=== PATIENT | female | born 2000 | race Hispanic/Latino ===

== ENCOUNTER 2021-05-30 11:38 | Emergency (ER) | payer OTHER, SELFPAY ==
[2021-05-30 11:55] VITALS: BP 135/67; PULSE 88; RESP 16; TEMP 37; O2SAT 100; BMI 24.9
--- NOTE | 2021-05-30 12:02 | DI.US.S_ITS ---
PROCEDURE: US OB <= 14 WEEKS FETUS INDICATIONS: BLEEDING/PAIN OUTSIDE/PRIOR DATING DATA: Last menstrual period (LMP): 04/10/2021. LMP-based estimated date of delivery (RACHAEL): 01/15/2022. First dating scan (date and location): 05/30/2021. Estimated date of delivery (RACHAEL) from first dating scan: 01/18/2022. The calculations are made using the ultrasound derived RACHAEL of 01/18/2022. TECHNIQUE: Real-time scanning was performed of the fetus and maternal pelvic organs, with image documentation. Endovaginal scanning was also performed to better visualize the fetus and maternal ovaries. COMPARISON: None. FINDINGS: There is a gestational sac at the uterine fundus containing a fetus which measures 8 mm, corresponding to gestational age of 6 weeks 5 days. heart rate 145 beats per minute. Yolk sac noted. No perigestational hemorrhage demonstrated. Maternal organs: Both ovaries are normal; with 2.3 cm right adnexal corpus luteum cyst noted. No uterine mass. IMPRESSION: Single live intrauterine gestation, estimated ultrasound age 6 weeks 5 days. Dictated by: Dwayne Calderon M.D. on 05/30/2021 at 12:39 Approved by: Dwayne Calderon M.D. on 05/30/2021 at 12:42
[2021-05-30 12:36] LABS: RBC Urine 1-5/HPF (0-5/HPF); WBC Urine 5-10/HPF (0-5/HPF)
[2021-05-30 12:37] LABS: Bacteria Urine Many (>30); Culture Indicated Urine Specimen Cultured
[2021-05-30 13:12] VITALS: BP 102/52; PULSE 80; O2SAT 99
[2021-05-30 13:47] LABS: HCG Quantitative /Beta subunit 60464 mIU/mL
--- NOTE | 2021-05-30 13:54 | ED_ITS ---
HPI - General Chief complaint: Urogenital-Female Stated complaint: Possible ectopic - [facility] by base Time Seen by Provider: 05/30/21 12:02 Source: patient Mode of arrival: Ambulatory Limitations: no limitations History of Present Illness HPI Narrative: 21-year-old female who is and approximately 6 weeks presents to the emergency department complaining of vaginal bleeding which started 1 week ago with menstrual cramping which started 2 weeks ago. Patient states that she was high risk during her last due to her baby's dextrocardia. She states that she has not seen her OBGYN yet but it is Derek Will. Patient endorses nausea consistent with her morning sickness, denies any vomiting, diarrhea, fever, or abdominal pain. Patient states that she was spotting for approximately 1, last night her vaginal bleeding became heavier and she went through more than 1 pad. 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 General: Cooperative, comfortable, in no acute distress, well developed and well groomed Head/Neck: Normal visual inspection and supple, atraumatic, or lymphadenopathy. Normal facial exam Eyes: Pupils equal round and reactive, EOMI, conjunctiva normal, no scleral icterus or injections Nose: External nose normal, nares patent, no rhinorrhea, without purulent drainage Mouth/Throat: uvula midline, moist mucus membranes Cardio: Regular rate and rhythm, no peripheral edema, warm extremities Respiratory: Normal respiratory effort, able to speak in complete sentences without audible wheezing, stridor, or rales. No retractions. 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: deferred exam for OB ultrasound, patient denies any abnormal vaginal discharge other than spotting MSK: Moves all extremities, neurovascularly intact Skin: Normal capillary refill, no rash Neuro: Normal speech and cognition, normal gait, A&O x3, tone normal, moves all extremities Psych: Mental status is grossly normal, speech is clear, congruent mood, normal affect Initial Vital Signs Initial Vital Signs: Vital Signs Temperature 98.6 F 05/30/21 11:55 Pulse Rate 88 05/30/21 11:55 Respiratory Rate 16 05/30/21 11:55 Blood Pressure 135/67 05/30/21 11:55 Pulse Oximetry 100 05/30/21 11:55 Course Orders Ordered: ED Orders 05/30/21 12:02 US OB <= 14 weeks fetus Stat 05/30/21 12:27 Urine Culture Stat Urine Microscopic Stat 05/30/21 12:40 HCG Quantitative /Beta subunit Stat Vital Signs Vital signs: Vital Signs - 8 hr 05/30/21 11:55 05/30/21 13:12 Temperature 98.6 F Pulse Rate 88 80 Respiratory Rate 16 Blood Pressure 135/67 102/52 L Pulse Oximetry 100 99 MDM - OB/Uterine Contractions Lab Data Labs: Lab Results 05/30/21 05/30/21 Range/Units 12:27 12:40 HCG, Quant 02322 mIU/mL Urine RBC 1-5/hpf (0-5/HPF) Urine WBC 5-10/hpf H (0-5/HPF) Urine Bacteria Many (>30) H (None) Ur Culture Indicated? Specimen cultured Imaging Data US - OB: Radiologist's Impression: [address] [address] Ultrasound Report Signed Patient: Marj Deal MR#: [id number] : 2000 Acct:[id number] Age/Sex: 21 / F Date of Service: 05/30/21 PROCEDURE:? US OB <= 14 WEEKS FETUS ? INDICATIONS:? BLEEDING/PAIN ? OUTSIDE/PRIOR DATING DATA:? Last menstrual period (LMP):? 04/10/2021.? LMP-based estimated date of delivery (RACHAEL):? 01/15/2022.? First dating scan (date and location):? 05/30/2021.? Estimated date of delivery (RACHAEL) from first dating scan:? 01/18/2022. The calculations are made using the ultrasound derived RACHAEL of 01/18/2022. ? TECHNIQUE:? Real-time scanning was performed of the fetus and maternal pelvic organs, with image documentation.? Endovaginal scanning was also performed to better visualize the fetus and maternal ovaries.? ? COMPARISON:? None. ? FINDINGS:? ? There is a gestational sac at the uterine fundus containing a fetus which measures 8 mm, corresponding to gestational age of 6 weeks 5 days.? heart rate 145 beats per minute.? Yolk sac noted.? No perigestational hemorrhage demonstrated. ? Maternal organs:? Both ovaries are normal; with 2.3 cm right adnexal corpus luteum cyst noted.? No uterine mass. ?? IMPRESSION:? Single live intrauterine gestation, estimated ultrasound age 6 weeks 5 days. ?? Dictated by: Dwayne Calderon M.D. on 05/30/2021 at 12:39 ? ? Approved by: Dwayne Calderon M.D. on 05/30/2021 at 12:42 ? MDM Narrative Medical decision making narrative: 21-year-old female who is 6 weeks 5 days gestation, LMP 04/10/2021 who presents to the emergency department for vaginal spotting which started 1 week ago and menstrual cramping which started 2 weeks ago. She was sent over from the [facility] to rule out ectopic . On exam patient denies any abdominal pain or exquisite tenderness with palpation, she is in no apparent distress, states that her spotting was light about a week ago and has progressed slightly to dark red blood last night and over 1 pad throughout the night. She endorses nausea without vomiting, afebrile, no abnormal vaginal discharge other than spotting. Patient has an with dextrocardia and states that she is high risk for . She denies history of ectopic . Ob ultrasound was completed today which shows a single live intrauterine gestation ultrasound age estimated at 6 weeks 5 days. heart rate was 145 beats per minute, yolk sac noted, without perigestational hemorrhage demonstrated. LMP based estimated date of delivery: 01/15/2022. Directed patient to follow-up soon with Derek Wlil MD who is her OBGYN. She was shared the results of her ultrasound and HCG quant level of 60,464. Patient is appropriate and amenable to discharge home. Vital signs are stable on repeat examination is unremarkable. Patient has been informed of results. Patient has been given strict return to ER precautions for any new or worsening symptoms. Patient understands to follow up closely with outpatient providers as instructed. Patient understands plan and agrees to discharge home. All questions and concerns answered at this time. Discharge Plan Departure Patient Disposition: Home Clinical Impression: Antepartum bleeding, first trimester Instructions: DI for Vaginal Bleeding During , Early Bleeding Activity Restrictions/Additional Instructions: *You have been diagnosed with a 6 week 5-day-old fetus, heart tones were 145, hCG level is 60,464. Please follow-up with Dr. Will in the next 2-3 days and have your hCG drawn again, and have them test your urine again for infection as well. Because your last baby was at high risk and your high-risk as well, I want you to be seen by OBGYN as soon as possible. Please stay hydrated with electrolyte containing drinks. I hope you feel better soon. *What to do: *Please continue to take your regular medications as directed. [ ] New medication prescriptions sent to your pharmacy: [ ] [ ] New medication written as a paper prescription [ x] No new medications given *Please follow up with your primary care provider in 2-3 days, call for an appointment. Let them know you were seen in the Emergency Department and that we ask that you be seen in follow up. We will electronically transmit a record of today's note if your PCP is in our system *If you do not have a primary care provider please contact the [facility] Resource line at [phone]. They will ask some questions about your medical history and help get you set up with a doctor in the community. *Return to Emergency Department if you should have any new, worsening or concerning symptoms, such as [fever greater than 101F, chills, worsening pain, persistent vomiting or other bothersome symptoms] Referrals: Derek Will MD [Physician] - As soon as possible
== END 2021-05-30 14:08 | disposition home or self-care (01) ==
PROVIDERS: Emergency Provider Nurse Practitioner Critical Care Medicine
DX: O20.9 Hemorrhage in early pregnancy, unspecified (principal); Z3A.01 Less than 8 weeks gestation of pregnancy
CPT/HCPCS: 36415; 76801; 76817; 81015; 84702; 87077; 87086; 87186; 99284

== ENCOUNTER 2021-06-18 08:32 | Emergency (ER) | payer OTHER, SELFPAY ==
[2021-06-18 08:49] VITALS: BP 142/86; PULSE 117; RESP 20; TEMP 36.4; O2SAT 100; BMI 24.0
--- NOTE | 2021-06-18 08:55 | ED.GENADULT ---
HPI - General Adult General Chief complaint: Urogenital-Female Stated complaint: Heavy bleeding- 10 weeks Time Seen by Provider: 06/18/21 08:42 History of Present Illness HPI narrative: The patient is , 9+ 6 weeks . She developed heavy bleeding while at work about 815 this morning. Her pants are soaked. There is no obvious, ongoing bleeding. She has no abdominal cramping, no pain. She has no urinary complaints. She has no fever, chills, or suggestion of acute illness. She is uncertain of her blood type. She denies chronic illness. Related Data Allergies Allergy/AdvReac Type Severity Reaction Status Date / Time No Known Drug Allergies Allergy Verified 05/30/21 11:59 Review of Systems Constitutional Constitutional: Denies body ache(s), Denies chills, Denies fever(s) and Denies headache(s) ENT Ears, Nose, Mouth, and Throat: Denies headache(s) and Denies sore throat Cardiovascular Cardiovascular: Denies dyspnea Respiratory Respiratory: Denies cough and Denies dyspnea Gastrointestinal Gastrointestinal: Denies abdominal pain, Denies nausea and Denies vomiting Genitourinary Genitourinary: Denies dysuria Comments: Heavy vaginal bleeding is noted HPI. Musculoskeletal Musculoskeletal: Denies back pain Neurologic Neurologic: Denies headache(s) Patient History Social History Smoking Status: Never smoker Smoking Status: Never smoker Substance Use Type: does not use Exam Initial Vital Signs Initial Vital Signs: Vital Signs Temperature 97.6 F 06/18/21 08:49 Pulse Rate 117 H 06/18/21 08:49 Respiratory Rate 20 06/18/21 08:49 Blood Pressure 142/86 H 06/18/21 08:49 Pulse Oximetry 100 06/18/21 08:49 Const General: cooperative, healthy appearing, comfortable and anxious [facility] Head: normocephalic and atraumatic Resp Auscultation: clear to auscultation bilaterally Cardio Rate: regular rate Rhythm: regular rhythm Heart Sounds: S1 normal, S2 normal and no murmurs GI Palpation: soft, No mass and No tender Auscultation: normal bowel sounds External Female Exam: normal external appearance Speculum Exam - Vagina: other (Dark blood in the vagina. Small amount of blood at the cervix. ) Speculum Exam - Cervix: closed Bimanual Exam- Vagina & Uterus: other (Uterus consistent with 10 week .) Bimanual Exam- Adnexa, other: normal adnexae Skin General: no rashes or lesions noted Neuro General: patient alert, patient awake and patient oriented x3 Extrem General: normal to inspection and full ROM Course Orders Ordered: ED Orders 06/18/21 08:56 ABO RH Type Stat Complete Blood Count AUTO DIFF Stat 06/18/21 09:00 Comprehensive Metabolic Panel Stat HCG Quantitative /Beta subunit Stat 06/18/21 11:04 US OB <= 14 weeks fetus Stat Vital Signs Vital signs: Vital Signs - 8 hr 06/18/21 08:49 Temperature 97.6 F Pulse Rate 117 H Respiratory Rate 20 Blood Pressure 142/86 H Pulse Oximetry 100 Medical Decision Making Lab Data Result diagrams: 06/18/21 08:56 06/18/21 09:00 Labs: Lab Results 06/18/21 06/18/21 06/18/21 Range/Units 08:56 08:56 09:00 WBC 9.5 (4.5-11.0) X10^3/uL RBC 4.47 (4.0-5.2) X10^6/uL Hgb 13.6 (12.0-16.0) g/dL Hct 40.7 (36-46) % MCV 91.1 (80-100) fL MCH 30.4 (26-34) PG MCHC 33.4 (30-36) % RDW 13.2 (11.6-14.8) % Plt Count 190 (150-400) X10^3/uL Neut % (Auto) 76.8 H (50-75) % Lymph % (Auto) 16.6 L (25-40) % Catron % (Auto) 5.4 (3-14) % Eos % (Auto) 0.6 L (2-4) % Baso % (Auto) 0.6 (0-2) % Neut # (Auto) 7300 H (7250-0875) /uL Lymph # (Auto) 1600 (2968-2017) /uL Catron # (Auto) 500 (0-900) /uL Eos # (Auto) 100 (0-450) /uL Baso # (Auto) 100 (0-100) /uL Sodium 136 L (137-145) mmol/L Potassium 3.3 L (3.4-5.1) mmol/L Chloride 105 (98-107) mmol/L Carbon Dioxide 23 (22-32) mmol/L BUN 7 (7-17) mg/dL Creatinine 0.48 L (0.52-1.04) mg/dL Estimated GFR > 60.0 (>60) mL/min BUN/Creatinine Ratio 14.6 (6-22) Glucose 80 (70-100) mg/dL Calcium 9.1 (8.4-10.2) mg/dL Total Bilirubin 0.7 (0.2-1.3) mg/dL AST 23 (14-36) IU/L ALT 14 (<35) IU/L Alkaline Phosphatase 51 (38-126) U/L Total Protein 7.8 (6.3-8.2) g/dL Albumin 4.5 (3.5-5.0) g/dL Globulin 3.3 (1.7-4.1) g/dL Albumin/Globulin Ratio 1.4 (1.0-2.8) HCG, Quant 98823 mIU/mL Blood Type O Positive Point of Care Testing Test Results Positive Urine Dip Bedside Urine Glucose Negative Bedside Urine Bilirubin - Negative Bedside Urine Ketone +/- 5 Urine Specific [place] 1.015 Bedside Urine Occult Blood ++ Bedside Urine pH 6.0 Bedside Urine Protein - Negative Bedside Urine Urobilinogen - Negative Bedside Urine Nitrite + Positive Bedside Urine Leukocytes - Negative Esterase Point of care testing: Point of Care Testing Test Results Positive Urine Dip Bedside Urine Glucose Negative Bedside Urine Bilirubin - Negative Bedside Urine Ketone +/- 5 Urine Specific [place] 1.015 Bedside Urine Occult Blood ++ Bedside Urine pH 6.0 Bedside Urine Protein - Negative Bedside Urine Urobilinogen - Negative Bedside Urine Nitrite + Positive Bedside Urine Leukocytes - Negative Esterase Imaging Data US - OB: Radiologist's Impression: 88 Jamarcus Meeks MD [facility] Routine Call Back Main ED ?11? My List ?4? Waiting ?3? Surge ED ?0? R02? Monlux? Missy? 84 F? With Doctor? 2h 22m? 2-Emergent? ?? Neuro Symptoms/Deficit? Altered Mental Status? ISO? 06/18/21 10:17? REG ER? Draft? Jamarcus Fischer R Trop 0.261 [place] records requested 1230 Order BP 148/60 Pulse 85 Resp 21 Temp O2 Sat Imaging ?Complete B... ?Chem Ethanol (E... ?Prolactin ... Salicylate... ?Urinalysis... ?Acetaminop... Ammonia (N... Lactate (L... ?Prothrombi... ?Troponin &... Urine Drug... POC/BEBA Magnesium ... ?Phosphorou... COVID19 -N... MAR EKG-12 Polina... Microbiolo... Phosphorou... R04? Bogdan? Best? 60 M? With Doctor? 1h 53m? 2-Emergent? ?? Shortness of Breath/Dyspnea? Trouble breathing? ISO, C19S/S? 06/18/21 12:09? REG ER? Draft? Jamarcus Hartmann echo ordered Order BP 124/63 Pulse 102 Resp 20 Temp O2 Sat 96% ?NT-proBNP ... ?Complete B... ?Chem Lactate (L... ?Prothrombi... ?Troponin &... Imaging MAR EKG-12 Polina... Measure pe... RT Consult... Cardiac mo... COVID19 -N... Consult to... EKG R06? Deal? Marj? 21 F? With Doctor? 4h 5m? 3-Urgent? ?? Urogenital-Female? Heavy bleeding- 10 weeks ? Preg? 06/18/21 08:42? REG ER? Draft? Jamarcus Rivers P Order BP 142/86 Pulse 117 Resp 20 Temp 97.6 F O2 Sat 100% (RA) ?Complete B... HCG Quanti... ABO RH Typ... ?Chem POC/BEBA Imaging R07? Morris? Jan? 33 M? With Doctor? 1h 1m? 3-Urgent? ?? Fall? Thinks fractured rib- left side? ?? 06/18/21 12:06? REG ER? No Document? Lucía Changylin P Order BP 142/92 Pulse 101 Resp 18 Temp 98.8 F O2 Sat Imaging R08? Monet? Roseanne? 48 F? With Doctor? 3h 30m? 2-Emergent? ?? Chest Pain? Chest pain? C19S/S? 06/18/21 09:24? REG ER? Draft? Jamarcus Helms records from @0927 Told not to take ASA but states not allergic Order BP Pulse 97 Resp 28 Temp O2 Sat 95% Troponin &... Imaging ?NT-proBNP ... COVID19 -N... ?Chem Magnesium ... Partial Th... Prothrombi... ?Complete B... Lipase Sta... ?D Dimer St... MAR NPO Diet Cardiac mo... EKG-12 Polina... R10? Silver? ? 8 F? In Room? 2h 2m? 4-Less Urgent? ?? Extremity Injury, Upper? fell, hurt wrist? ?? No Time Seen? REG ER? No Document? Sign Up Abimael Serna + Fracture Order BP 133/78 Pulse 111 Resp 20 Temp 98.2 F O2 Sat 99% (RA) Imaging R11? Ezekiel? Dez? 89 M? With Doctor? 1h 10m? 3-Urgent? ?? Nausea/Vomiting/Diarrhea? Abnormal labs- liver- sent by [facility]? ?? 06/18/21 12:06? REG ER? No Document? Lucía Kohli Abimael Serna INR 11.3 Order BP 112/71 Pulse 82 Resp 18 Temp 97.1 F O2 Sat 99% (RA) ?Partial Th... ?Complete B... ?Prothrombi... Ammonia (N... Chem Lipase Sta... Cardiac mo... NPO Diet EKG-12 Polina... POC/BEBA R12? Joe Sommer? Gato? 54 M? In Room? 33m? Abdominal Pain? Umbillical Hernia, Sent From [facility]? ?? No Time Seen? REG ER? No Document? Sign Up Abimael Serna Order NPO Diet Complete B... Lipase Sta... Cardiac mo... Chem Partial Th... Prothrombi... EKG-12 Polina... POC/BEBA COVID19 -N... [facility]? [facility]? Charles? 25 M? Waiting Room? 1m? No Chief Complaint? Throwing up blood, pressure in chest- sent by [facility]? ?? No Time Seen? PRE ER? No Document? Sign Up Order [facility]oom? Rinku? Raysa? 33 F? Registered? 40m? 3-Urgent? VC: 1? Abdominal Pain? Abd Wall Hernia? ?? No Time Seen? REG ER? No Document? Sign Up dbl dip please pee in dirty utility room Order BP Pulse 73 Resp 17 Temp 97.8 F O2 Sat 99% (RA) NPO Diet Chem Lipase Sta... Complete B... POC/BEBA [facility]? Wilbert? Ronal? 56 M? Registered? 21m? 3-Urgent? VC: 1? Extremity Problem,Nontraumatic? Swollen Legs/Red? ?? No Time Seen? REG ER? No Document? Sign Up need weight [employer]- homeless Order BP 158/78 Pulse 69 Resp 18 Temp 97.3 F O2 Sat 95% (RA) Consult to... Imaging - US OB <= 14 weeks fetus Marj Deal??21??F??2000 ? Allergy/Adv: No Known Drug Allergies (More??) Close Imaging ACTIVITY DATE EXAM STATUS AUTHOR 06/18/21 11:04 Ultrasound Signed Timothy Marie Imaging Reports Close Ultrasound (Signed) Timothy Marie - 06/18/21 Launch?[place] [address] Ultrasound Report Signed Patient: Marj Deal MR#: [id number] : 2000 Acct:[id number] Age/Sex: 21 / F Date of Service: 06/18/21 Loc: ED Accession Number: [id number] ?? Procedure: US OB <= 14 weeks fetus Ordering Provider: Jamarcus Meeks MD PROCEDURE:? US OB <= 14 WEEKS FETUS ? INDICATIONS:? BLEEDING ? OUTSIDE/PRIOR DATING DATA:? Last menstrual period (LMP):? 04/10/2021.? LMP-based estimated date of delivery (RACHAEL):? 01/15/2022.? First dating scan (date and location):? 05/30/2021.? Estimated date of delivery (RACHAEL) from first dating scan:? 01/18/2022. ? TECHNIQUE:? Real-time scanning was performed of the fetus and maternal pelvic organs, with image documentation.? ? COMPARISON:? [facility], OB <= 14 WEEKS FETUS, 05/30/2021, 12:11. ? FINDINGS:? ? Embryo:? pole measures 3.1 cm, corresponding with a 10 week 0 day gestation. Heart rate:? 163 beats per minute. ? There is a complex hypoechoic focus in the lower uterine segment measuring 2.8 x 1.5 x 2.6 cm without internal vascularity which may reflect blood products.? Additional concave perigestational bleed noted measuring 2.9 x 0.3 by 3.0 cm. ? Cervix is closed measuring approximately 3.1 cm ? Maternal organs:? Ovaries unremarkable. ? ? ? IMPRESSION:? ? 1. Single live intrauterine corresponds with a 10 week 0 day gestation ? 2. Hypoechoic complex focus in the lower uterine segment endometrial canal could reflect blood products, 2.8 cm. ? 3. Additional perigestational bleed measures 2.9 x 0.3 cm ? ? ? Approved by: Timothy Marie M.D. on 06/18/2021 at 11:30? Discharge Plan Departure Patient Disposition: Home Clinical Impression: Intrauterine , Threatened miscarriage Instructions: Threatened Miscarriage Activity Restrictions/Additional Instructions: The baby appears well on ultrasound. There is a collection of fluid in the uterus, you likely have more blood that will come out. Follow-up with your OB provider within the week. Return here as needed. Referrals: Miscellkyle,MD Ina [Primary Care Provider] - Stand Alone Forms: Work Release Note
[2021-06-18 09:11] LABS: Add Manual Diff / Slide Review NO; Basophils Absolute Auto 100 /uL (0-100); Basophils Percent Auto 0.6 % (0-2); Eosinophils Absolute Auto 100 /uL (0-450); Eosinophils Percent Auto 0.6 % (2-4); Hematocrit 40.7 % (36-46); Hemoglobin 13.6 g/dL (12.0-16.0); Lymphocytes Absolute Auto 1600 /uL (1100-4500); Lymphocytes Percent Auto 16.6 % (25-40); Mean Corpuscular HGB Conc 33.4 % (30-36); Mean Corpuscular Hemoglobin 30.4 PG (26-34); Mean Corpuscular Volume 91.1 fL (80-100); Monocytes Absolute Auto 500 /uL (0-900); Monocytes Percent Auto 5.4 % (3-14); Neutrophils Absolute Auto 7300 /uL (1500-7000); Neutrophils Percent Auto 76.8 % (50-75); Platelet Count 190 X10^3/uL (150-400); Red Blood Cell Count 4.47 X10^6/uL (4.0-5.2); Red Cell Distribution Width 13.2 % (11.6-14.8); White Blood Cell Count 9.5 X10^3/uL (4.5-11.0)
--- NOTE | 2021-06-18 09:28 | PC.NURSE ---
dr. cummins at bedside performed immediate pelvic exam. states bleeding appears to be resolved.
[2021-06-18 09:54] LABS: Alanine Aminotransferase 14 IU/L (<35); Albumin 4.5 g/dL (3.5-5.0); Albumin Globulin Ratio 1.4 (1.0-2.8); Alkaline Phosphatase 51 U/L (38-126); Aspartate Aminotransferase 23 IU/L (14-36); BUN Creatinine Ratio 14.6 (6-22); Bilirubin Total 0.7 mg/dL (0.2-1.3); Blood Urea Nitrogen 7 mg/dL (7-17); Calcium 9.1 mg/dL (8.4-10.2); Carbon Dioxide 23 mmol/L (22-32); Chloride 105 mmol/L (98-107); Estimated Glomerular Filt Rate > 60.0 mL/min (>60); Globulin 3.3 g/dL (1.7-4.1); Glucose 80 mg/dL (70-100); HEMOLYSIS < 15 (0-50); Potassium 3.3 mmol/L (3.4-5.1); Sodium 136 mmol/L (137-145); Total Protein 7.8 g/dL (6.3-8.2)
[2021-06-18 10:42] LABS: HCG Quantitative /Beta subunit 94773 mIU/mL
--- NOTE | 2021-06-18 11:04 | DI.US.S_ITS ---
PROCEDURE: US OB <= 14 WEEKS FETUS INDICATIONS: BLEEDING OUTSIDE/PRIOR DATING DATA: Last menstrual period (LMP): 04/10/2021. LMP-based estimated date of delivery (RACHAEL): 01/15/2022. First dating scan (date and location): 05/30/2021. Estimated date of delivery (RACHAEL) from first dating scan: 01/18/2022. TECHNIQUE: Real-time scanning was performed of the fetus and maternal pelvic organs, with image documentation. COMPARISON: [facility], OB <= 14 WEEKS FETUS, 05/30/2021, 12:11. FINDINGS: Embryo: pole measures 3.1 cm, corresponding with a 10 week 0 day gestation. Heart rate: 163 beats per minute. There is a complex hypoechoic focus in the lower uterine segment measuring 2.8 x 1.5 x 2.6 cm without internal vascularity which may reflect blood products. Additional concave perigestational bleed noted measuring 2.9 x 0.3 by 3.0 cm. Cervix is closed measuring approximately 3.1 cm Maternal organs: Ovaries unremarkable. IMPRESSION: 1. Single live intrauterine corresponds with a 10 week 0 day gestation 2. Hypoechoic complex focus in the lower uterine segment endometrial canal could reflect blood products, 2.8 cm. 3. Additional perigestational bleed measures 2.9 x 0.3 cm Approved by: Timothy Marie M.D. on 06/18/2021 at 11:30
[2021-06-18 12:54] VITALS: BP 115/62; PULSE 85; RESP 18; O2SAT 98
== END 2021-06-18 12:55 | disposition home or self-care (01) ==
PROVIDERS: Emergency Provider Emergency Medicine
DX: O20.0 Threatened abortion (principal); Z3A.10 10 weeks gestation of pregnancy
CPT/HCPCS: 76801; 76817; 80053; 81003; 81025; 84702; 85025; 86900; 86901; 99283; 99284

== ENCOUNTER → 2021-06-22 15:45 | Outpatient (CLI) | payer OTHER, SELFPAY ==
[2021-06-22 17:04] LABS: Add Manual Diff / Slide Review NO; Basophils Absolute Auto 0 /uL (0-100); Basophils Percent Auto 0.5 % (0-2); Eosinophils Absolute Auto 100 /uL (0-450); Eosinophils Percent Auto 0.7 % (2-4); Hematocrit 38.4 % (36-46); Lymphocytes Absolute Auto 1600 /uL (1100-4500); Lymphocytes Percent Auto 16.4 % (25-40); Mean Corpuscular HGB Conc 33.8 % (30-36); Mean Corpuscular Hemoglobin 30.7 PG (26-34); Mean Corpuscular Volume 90.8 fL (80-100); Monocytes Absolute Auto 400 /uL (0-900); Monocytes Percent Auto 4.6 % (3-14); Neutrophils Absolute Auto 7400 /uL (1500-7000); Neutrophils Percent Auto 77.8 % (50-75); Platelet Count 175 X10^3/uL (150-400); Red Blood Cell Count 4.23 X10^6/uL (4.0-5.2); Red Cell Distribution Width 13.1 % (11.6-14.8); White Blood Cell Count 9.5 X10^3/uL (4.5-11.0)
[2021-06-23 08:59] LABS: RPR Screen Non Reactive (Non Reactive); Varicella IgG Antibody 170 index (Immune >165)
[2021-06-25 20:41] LABS: Hepatitis B Surface Antigen NEGATIVE s/c (NEGATIVE); Rubella Antibody IgG 24.2 IU/mL (>15)
[2021-06-25 20:57] LABS: HIV 1 & 2 Ab/Ag 4th Gen Combo NEGATIVE (NEGATIVE); Hep C Virus Ab w/Reflex Quant NEGATIVE s/c (NEGATIVE)
== END ==
PROVIDERS: Referring Provider Obstetrics & Gynecology; Visit Provider Obstetrics & Gynecology
DX: Z34.81 Encounter for supervision of other normal pregnancy, first trimester (principal); Z3A.10 10 weeks gestation of pregnancy
CPT/HCPCS: 36415; 80055; 86787; 86803; 86850; 86900; 86901; 87389

== ENCOUNTER → 2021-07-06 14:42 | Outpatient (CLI) | payer OTHER, SELFPAY ==
[2021-07-06 17:26] LABS: Urine N gonorrhoeae NOT DETECTED
[2021-07-06 17:39] LABS: Urine Chlamydia DETECTED
== END ==
PROVIDERS: Visit Provider Obstetrics & Gynecology
DX: Z34.81 Encounter for supervision of other normal pregnancy, first trimester (principal); Z3A.12 12 weeks gestation of pregnancy
CPT/HCPCS: 87491; 87591

== ENCOUNTER → 2021-08-22 08:54 | Outpatient (CLI) | payer OTHER, SELFPAY ==
[2021-08-22 12:55] LABS: Bilirubin Urine UA NEGATIVE (NEGATIVE); Color Urine UA YELLOW; Glucose Urine UA NEGATIVE (Negative); Ketones Urine UA NEGATIVE (NEGATIVE); Leukocyte Esterase Urine UA TRACE (NEGATIVE); Nitrite Urine UA POSITIVE (Negative); Occult Blood Urine UA NEGATIVE (Negative); Protein Urine UA NEGATIVE (Negative); Urobilinogen Urine UA 0.2 E.U./dL (0.2)
[2021-08-22 12:57] LABS: Appearance Urine UA CLOUDY
[2021-08-22 13:21] LABS: Amorphous Sediment Urine 1+; Bacteria Urine Many (>30); RBC Urine None Seen (0-5/HPF); Squamous Epithelial Cell Urine 0-1 /HPF (0-5/HPF); WBC Urine 1-5/HPF (0-5/HPF)
[2021-08-22 14:19] LABS: Urine N gonorrhoeae NOT DETECTED
[2021-08-22 14:31] LABS: Urine Chlamydia NOT DETECTED
== END ==
PROVIDERS: Visit Provider Obstetrics & Gynecology
DX: Z34.82 Encounter for supervision of other normal pregnancy, second trimester (principal); Z86.19 Personal history of other infectious and parasitic diseases
CPT/HCPCS: 81003; 81015; 87077; 87086; 87186; 87491; 87591

== ENCOUNTER 2021-08-25 12:28 | Outpatient (CLI) | payer OTHER, SELFPAY ==
--- NOTE | 2021-08-25 13:10 | P.TNLD_ITS ---
Visit Information Visit Information Date of evaluation: 08/25/21 Primary OB Provider: Derek Will On-call OB Provider: Karin Mcmillan Reason for Evaluation: Yes rupture of membranes Comments/Additional reasons for admission: Patient is a 21-year-old 2 para 1 at 19-,4/7 weeks gestation who felt that her water broke this morning. She was treated for urinary tract infection, but has not picked up the a ntibiotic as of yet. When asked if this was leakage of urine, patient denies. No cramping. No vaginal bleeding. She has felt movement. [facility] Medical History (Updated 08/22/21 @ 09:27 by Derek Will MD) Headache Migraine Otitis media UTI (urinary tract infection) Surgical History (Updated 06/18/21 @ 15:11 by Debora Siddiqui, RN) History of History of wisdom tooth extraction Family History (Updated 06/18/21 @ 15:19 by Debora Siddiqui, RN) Mother Diabetes mellitus Gestational diabetes Grandmother Breast cancer Social History marital status: unmarried,living together number of children: 1 household members: significant other, family (mother) and children lives independently: Yes housing: other (town house) pets and animals: No education level: college occupational status: employed ([email or web address]) current occupational exposures/hazards: No special tamiko needs: No seatbelt use: always water heater temp set < 120 deg: Yes working smoke detector in home: Yes fire extinguisher in home: Yes carbon monox detector in home: Yes firearms in home: No do you feel safe at home: Yes Smoking Status: Never smoker second hand exposure: No alcohol intake: former substance use type: does not use during the past year weight has: remained stable well-balanced diet: daily or most days daily servings fruits/ve-4 caffeine: Yes (ocassional - limit 200mg) Type(s) of exercise: walking and regular exercise (more before ) Evaluation Evaluation Baseline heart rate: 156 Non-invasive Membranes Rupture Test: negative Diagnosis, Plan/Disposition Plan/Disposition Plan: Assessment: 21-year-old 2 para 1 at 19-,4/7 weeks gestation with negative AmniSure Plan: Patient encouraged to pickle pumper her antibiotic today Follow-up with Dr. Will as scheduled OB Disposition: home
== END 2021-08-25 13:15 | disposition home or self-care (01) ==
LOC: OB 08-28 06:49
PROVIDERS: Referring Provider Obstetrics & Gynecology; Visit Provider Obstetrics & Gynecology
DX: Z03.71 Encounter for suspected problem with amniotic cavity and membrane ruled out (principal); Z3A.19 19 weeks gestation of pregnancy
CPT/HCPCS: 84112; G0378; G0379

== ENCOUNTER → 2021-09-25 09:57 | Outpatient (CLI) | payer OTHER, SELFPAY ==
[2021-09-25 15:28] LABS: Urine N gonorrhoeae NOT DETECTED
[2021-09-25 15:33] LABS: Urine Chlamydia NOT DETECTED
== END ==
PROVIDERS: Visit Provider Obstetrics & Gynecology
DX: Z34.82 Encounter for supervision of other normal pregnancy, second trimester (principal); Z11.3 Encounter for screening for infections with a predominantly sexual mode of transmission; Z3A.24 24 weeks gestation of pregnancy
CPT/HCPCS: 87077; 87086; 87186; 87491; 87591

== ENCOUNTER → 2021-10-22 12:11 | Outpatient (CLI) | payer OTHER, SELFPAY ==
[2021-10-22 13:50] LABS: Hematocrit 34.4 % (36-46); Hemoglobin 11.6 g/dL (12.0-16.0)
[2021-10-22 14:01] LABS: GTT (PREG) 1 Hour PP 50gm Dose 119 mg/dL (76-139)
== END ==
PROVIDERS: Referring Provider Obstetrics & Gynecology; Visit Provider Obstetrics & Gynecology
DX: Z34.82 Encounter for supervision of other normal pregnancy, second trimester (principal); Z3A.24 24 weeks gestation of pregnancy
CPT/HCPCS: 36415; 82950; 85014; 85018

== ENCOUNTER → 2021-10-30 15:57 | Outpatient (CLI) | payer OTHER, SELFPAY | PROVIDERS: Visit Provider Obstetrics & Gynecology | DX: B96.20 Unspecified Escherichia coli [E. coli] as the cause of diseases classified elsewhere (principal); N39.0 Urinary tract infection, site not specified | CPT/HCPCS: 87077; 87086; 87186 ==

== ENCOUNTER → 2021-12-18 16:36 | Outpatient (CLI) | payer OTHER, SELFPAY ==
[2021-12-18 23:29] LABS: Protein (Total) Urine Random 10 mg/dL (0-12); Protein Creatinine Ratio Urine 0.31 GRAM/24H
[2021-12-19 11:55] LABS: Strep Grp B PCR NEG for Grp B Strep
== END ==
PROVIDERS: Visit Provider Obstetrics & Gynecology
DX: Z34.83 Encounter for supervision of other normal pregnancy, third trimester (principal); Z3A.36 36 weeks gestation of pregnancy; R03.0 Elevated blood-pressure reading, without diagnosis of hypertension
CPT/HCPCS: 82570; 84156; 87086

== ENCOUNTER → 2021-12-18 16:52 | Outpatient (CLI) | payer OTHER, SELFPAY ==
[2021-12-18 17:56] LABS: Add Manual Diff / Slide Review NO; Basophils Absolute Auto 100 /uL (0-100); Basophils Percent Auto 0.5 % (0-2); Eosinophils Absolute Auto 100 /uL (0-450); Eosinophils Percent Auto 0.8 % (2-4); Hematocrit 34.8 % (36-46); Hemoglobin 11.6 g/dL (12.0-16.0); Lymphocytes Absolute Auto 1500 /uL (1100-4500); Lymphocytes Percent Auto 12.4 % (25-40); Mean Corpuscular HGB Conc 33.3 % (30-36); Mean Corpuscular Hemoglobin 27.7 PG (26-34); Mean Corpuscular Volume 83.2 fL (80-100); Monocytes Absolute Auto 1000 /uL (0-900); Monocytes Percent Auto 8.4 % (3-14); Neutrophils Absolute Auto 9100 /uL (1500-7000); Neutrophils Percent Auto 77.9 % (50-75); Platelet Count 174 X10^3/uL (150-400); Red Blood Cell Count 4.19 X10^6/uL (4.0-5.2); Red Cell Distribution Width 14.3 % (11.6-14.8); White Blood Cell Count 11.7 X10^3/uL (4.5-11.0)
[2021-12-18 18:09] LABS: Alanine Aminotransferase 12 IU/L (<35); Albumin 3.4 g/dL (3.5-5.0); Albumin Globulin Ratio 1.1 (1.0-2.8); Alkaline Phosphatase 123 U/L (38-126); Aspartate Aminotransferase 19 IU/L (14-36); BUN Creatinine Ratio 14.6 (6-22); Bilirubin Total 0.5 mg/dL (0.2-1.3); Blood Urea Nitrogen 6 mg/dL (7-17); Calcium 8.5 mg/dL (8.4-10.2); Carbon Dioxide 23 mmol/L (22-32); Chloride 109 mmol/L (98-107); Estimated Glomerular Filt Rate > 60 mL/min (>60); Globulin 3.1 g/dL (1.7-4.1); Glucose 73 mg/dL (70-100); HEMOLYSIS < 15 (0-50); Potassium 3.5 mmol/L (3.4-5.1); Sodium 135 mmol/L (137-145); Total Protein 6.5 g/dL (6.3-8.2); Uric Acid 2.7 mg/dL (2.5-6.2)
== END ==
PROVIDERS: Referring Provider Obstetrics & Gynecology; Visit Provider Obstetrics & Gynecology
DX: Z34.83 Encounter for supervision of other normal pregnancy, third trimester (principal); Z3A.36 36 weeks gestation of pregnancy; R03.0 Elevated blood-pressure reading, without diagnosis of hypertension
CPT/HCPCS: 36415; 80053; 82570; 84156; 84550; 85025; 87077; 87086; 87186; 87653

== ENCOUNTER 2022-01-14 05:48 | Inpatient (IN) | payer OTHER, SELFPAY ==
--- NOTE | 2022-01-13 14:42 | P.HPOB_ITS ---
OB HPI Date/Time Date of admission: 01/14/22 Date Patient Seen: 01/14/22 Time Patient Seen: 07:10 History of Present Condition Chief complaint: REPEAT : 2 Para: 1 Estimated Date of Delivery: 01/14/22 Estimated Gestational Age (weeks): 40+0 Narrative: Marj Deal is a 21 year old RACHAEL 01/14/2022 admitted now at 40+0 weeks EGA for a repeat section. Dating is firm and growth has been a ppropriate. She had a single mild systolic elevations but lab workup for PEC negative and blood pressures have never been in the severe or near-severe range. She has a history of congenital heart disease with her first delivery. echocardiogram at [facility] showed normal cardiac anatomy with a possible small VSD but delivery at [facility] deemed safe and appropriate by pediatric cardiology/MFM. Patient noted to be mildly anemic and she has been suplementing iron intake in the third trimester. GBS is negative Indications Operative indications ( section): previous uterine surgery History of Present care: good care Dating criteria: LMP confirmed by 1st trimester US Ultrasounds: normal 1st trimester US, normal mid trimester US and other (Normal echocardiogram) Obstetrical complications: none Medical complications: none Preadmission Labs Blood type: O (+) positive -: Antibody screen: negative, GBS status: negative, HBsAG: negative, HIV: ne gative and RPR/VDLR: negative -: Chlamydia screen: not detected and Gonorrhea screen: not detected -: Rubella: immune and Varicella: immune HCT: 34.8 HCAB: negative PAP: Normal Quad screen: Normal 1 hr GTT: 119 Prior (ies) History: Prior section at 32 wks. for intolerance of labor, CHD Evaluation Evaluation Baseline heart rate: 150 Variability: Moderate (11-25) monitor accelerations: Present Monitor Decelerations: Absent Category of Tracing: Reactive Status: Category l PFSH Medical History Headache Migraine Otitis media UTI (urinary tract infection) Surgical History History of History of wisdom tooth extraction Family History Mother Diabetes mellitus Gestational diabetes Grandmother Breast cancer Social History marital status: unmarried,living together number of children: 1 household members: significant other, family (mother) and children lives independently: Yes housing: other (town house) pets and animals: No education level: college occupational status: employed ([employer]) current occupational exposures/hazards: No special tamiko needs: No seatbelt use: always water heater temp set < 120 deg: Yes working smoke detector in home: Yes fire extinguisher in home: Yes carbon monox detector in home: Yes firearms in home: No do you feel safe at home: Yes Smoking Status: Never smoker second hand exposure: No alcohol intake: former substance use type: does not use during the past year weight has: remained stable well-balanced diet: daily or most days daily servings fruits/ve-4 caffeine: Yes (ocassional - limit 200mg) Type(s) of exercise: walking and regular exercise (more before ) Meds Home Medications and Allergies Home Medications Medication Instructions Recorded Confirmed Type prenat.vits,jacinto,dha-rena-zrten 1 tab PO DAILY 06/18/21 01/14/22 History Allergies Allergy/AdvReac Type Severity Reaction Status Date / Time No Known Drug Allergies Allergy Verified 01/14/22 06:41 Review of Systems Review of Systems Narrative: Problem-specific ROS positives included in HPI OB Exam HENMT Head: normal to inspection, normocephalic and atraumatic Eyes General: appearance normal, both eyes and all related structures Resp Effort & Inspection: normal respiratory effort and able to speak in complete sen tences Auscultation: clear to auscultation bilaterally Cardio Rate: regular rate Rhythm: regular rhythm Heart Sounds: S1 normal, S2 normal and no murmurs Extremities Lower extremity: Yes normal to inspection GI Inspection: normal to inspection Palpation: Yes soft and Yes no hepatosplenomegaly Uterus Location (Fundal Height): 39 Estimated Weight (lbs): 8 Objective Labs Result Diagrams: 01/13/22 06:45 Assessment and Plan Assessment and Plan Assessment and Plan narrative: ASSESSMENT 1. Intrauterine , sow, 40+0 weeks EGA 2. Prior section x 1 3. History of congential heart disease, previous 4. Anemia, mild 5. GBS negative status PLAN 1. Admit for repeat section 2. See admission orders
[2022-01-14] MEDS: LACTATED RINGERS 1,000 ML 100 ML IV ×4 (06:20→15:52)
[2022-01-14 06:37] VITALS: BP 83/46
[2022-01-14 06:44] LABS: Add Manual Diff / Slide Review NO; Basophils Absolute Auto 0 /uL (0-100); Basophils Percent Auto 0.4 % (0-2); Eosinophils Absolute Auto 100 /uL (0-450); Eosinophils Percent Auto 1.1 % (2-4); Hematocrit 37.6 % (36-46); Hemoglobin 12.5 g/dL (12.0-16.0); Lymphocytes Absolute Auto 2000 /uL (1100-4500); Lymphocytes Percent Auto 17.1 % (25-40); Mean Corpuscular HGB Conc 33.3 % (30-36); Mean Corpuscular Hemoglobin 26.8 PG (26-34); Mean Corpuscular Volume 80.5 fL (80-100); Monocytes Absolute Auto 700 /uL (0-900); Monocytes Percent Auto 6.3 % (3-14); Neutrophils Absolute Auto 8900 /uL (1500-7000); Neutrophils Percent Auto 75.1 % (50-75); Platelet Count 188 X10^3/uL (150-400); Red Blood Cell Count 4.67 X10^6/uL (4.0-5.2); White Blood Cell Count 11.9 X10^3/uL (4.5-11.0)
--- NOTE | 2022-01-14 07:25 | PM.PREOP ---
Pre-operative Note COVID-19 COVID-19 status: Negative Result date/Date tested (Pos, Neg/Pending): 01/14/22 Criteria for continued procedure: Non-surgical alternatives not available or appropriate per current SOC Interval Note History & Physical reviewed/Exam performed by Physician: Yes Changes to H&P: No
[2022-01-14 07:26] LABS: COVID19 -Nasal RAPID Negative (Negative)
[2022-01-14] MEDS: CITRIC ACID/SODIUM CITRATE 15 ML SOLUTION 30 ML PO (07:42)
[2022-01-14] MEDS: CEFAZOLIN 2 GM/100 ML PREMIX 100 ML IV (07:55)
[2022-01-14] MEDS: ACETAMINOPHEN IV 1,000 MG/100 ML VIAL 400 MG IV (08:10)
--- NOTE | 2022-01-14 08:19 | SUR.OPER ---
Supine on Padded OR bed, head on pillow, safety belt at thigh, arms secured on padded arm boards at <90 degrees abduction. Bump under right buttock. Legs uncrossed, gel pad to heels.
--- NOTE | 2022-01-14 08:40 | SUR.OPER ---
Viable baby girl born at 0828. Placenta and cord blood x2 given to OB DERRICK Prescott.
[2022-01-14 09:19] VITALS: BP 120/65; PULSE 87; RESP 16; TEMP 36.8; O2SAT 100
--- NOTE | 2022-01-14 09:22 | PM.OBCS.1 ---
Operative Date/Time/Diagnoses Date of procedure: 01/14/22 Time of procedure: 08:15 Pre-op diagnosis: Intrauterine gestation, sow, 40+0 weeks EGA Previous section Post-op diagnosis: same Procedure & Clinicians Procedure: Repeat section, low transverse cervical Same procedure as scheduled: Yes Indications: Marj Deal is a 21 year old RACHAEL 01/14/2022 admitted now at 40+0 weeks EGA for a repeat section.? Dating is firm and growth has been appropriate.? She had a single mild systolic elevations but lab workup for PEC negative and blood pressures have never been in the severe or near-severe range.? She has a history of congenital heart disease with her first delivery.? echocardiogram at [facility] showed normal cardiac anatomy with a possible small VSD but delivery at [facility] deemed safe and appropriate by pediatric cardiology/MFM.? Patient noted to be mildly anemic and she has been suplementing iron intake in the third trimester.? GBS is negative Surgeon: Derek Will Wire Sawyer: Diana Puckett Reason for Wire Sawyer: Wire Sawyer required for the safe, effective, and timely completion of this surgery. Anesthesia Type: Spinal Operative Notes Findings: Viable female BW 2976 gms. (6 lbs. 9 oz.), Apgars 8/8, delivered from the vertex presentation. Significant myometrial window noted in CELE @ 5 cm wide x 3 cm high, otherwise normal gravid anatomy. Closure Type: primary Specimen(s): cord blood Intraoperative meds administered: Ketorolac and Pitocin Applied: Catheter Estimated Blood Loss (mL): 600 Blood products transfused: none Procedure in detail: With her informed written consent, the patient was taken to the operating room and placed in the supine position for a repeat section procedure, for the indication(s) above. The abdomen was prepped and draped in the usual manner for section and a pre-surgical timeout was taken per [facility] OR protocol. Once effective anesthesia was confirmed, a 15 cm transverse Pfannenstiel incision was made in the skin and taken down through the subcutaneous tissues to the deep fascia. The deep fascia was incised transversely, the rectus abdominal eyes bluntly and sharply, and the peritoneal cavity entered without difficulty. The lower uterine segment was visualized and the position/presentation palpated. A transverse incision at or above the vesicouterine reflection was made with Metzenbaum scissors and transverse hysterotomy performed near the midline. Amniotomy revealed light meconium stained fluid. The incision was extended bilaterally with digital traction and the was delivered without difficulty from the vertex presentation. The infant was vigorous and cord clamping delayed for 60 seconds. The placenta was delivered intact using gentle cord traction and fundal massage.The uterine cavity was then cleared of any clot/debris first with a sloppy wet lap tape followed by a dry lap tape. Ring forceps were then applied to the angles and the midline of the incised CELE. A primary closure of the uterus was then accomplished with #1 CCGS in a running interlocking stitch followed by a 2nd layer of #1 CCGS in a running interlocking imbricating stitch. One additional figure-of eight suture was required to achieve complete hemostasis. Once pelvic hemostasis was assured, the bladder flap and anterior peritoneum were closed with a running 2-0 Vicryl suture and the fascia closed with #1 Vicryl in a running stitch initiated at both angles and tying separately near the midline. The subcutaneous tissues were reapproximated with 2-0 plain catgut suture using inverted interrupted stitches. The skin edges were then brought together with 4-0 Monocryl in a subcuticular closure and the incision was reinforced with 1 Steri-Strips. An appropriate compression dressing was applied and the patient transferred to PACU for recovery and subsequent transfer to the Center for recuperation. Complications: none [place] Baby 1: Gender: Female Presentation: vertex Position: Left Occiput Anterior Placental Delivery Description: Spontaneous and Expressed Cord Vessel Description: 3 Vessels score (1 min): 8 score (5 min): 8 weight: 6 lb 8.975 oz Post-operative Condition: stable Disposition: PACU Aftercare: routine postop
[2022-01-14 09:24] VITALS: BP 110/76; PULSE 85; RESP 14; O2SAT 100
[2022-01-14 09:34] VITALS: BP 98/64; PULSE 88; RESP 16; O2SAT 99
[2022-01-14 09:40] VITALS: BP 131/65; PULSE 96; RESP 16; TEMP 36.1; O2SAT 98
[2022-01-14 15:31] VITALS: TEMP 36.4
[2022-01-14] MEDS: KETOROLAC 30 MG/ML VIAL IV ×2 (15:31→21:29)
[2022-01-14] MEDS: NALBUPHINE 20 MG/ML AMPUL 10 MG IV (15:46)
[2022-01-14] MEDS: DOCUSATE 100 MG CAPSULE 200 MG PO (21:29)
[2022-01-14] MEDS: diphenhydrAMINE 50 MG/ML VIAL 25 MG IV (23:03)
[2022-01-15] MEDS: KETOROLAC 30 MG/ML VIAL IV (03:41)
[2022-01-15] MEDS: ACETAMINOPHEN 325 MG TABLET 650 MG PO ×2 (03:43→09:44)
--- NOTE | 2022-01-15 07:12 | PM.OBPN.1 ---
Subjective - OB Subjective Patient comments: no complaints, pain well controlled and incisional pain baby status: doing well feeding status: exclusively breast feeding Narrative: Patient is doing extremely well following her 1st postoperative night. She is not experiencing any nausea and vomiting, her pain is under good control, she is tolerating a regular diet, has had early return of bowel function, and she is voiding normally following catheter removal Date Patient Seen: 01/15/22 Time Patient Seen: 07:40 Exam Vital Signs (past 8 hours): Oxygen Delivery Method Room Air Const General: cooperative Nutritional Appearance: average body habitus Orientation: alert and oriented x3 HENMT Head: normal to inspection, atraumatic and abrasion Ears: hearing grossly normal bilaterally Face and sinus: face symmetric Eyes General: appearance normal, both eyes and all related structures Conjunctivae: conjunctivae normal Sclera: sclerae normal EOM: EOM intact bilaterally Neck Neck: normal visual inspection Resp Effort & Inspection: normal respiratory effort and able to speak in complete sentences GI Inspection: normal to inspection and incision (Dressing clean and dry) Palpation: soft, no hepatosplenomegaly and tender (Mild post-op tenderness) External Female Exam: other (No significant bleeding noted) Extrem General: no calf tenderness Psych Appearance: grossly normal Mental Status: mental status grossly normal Speech and Movement: speech and movement normal Mood: congruent mood Affect: normal affect Attitude: cooperative Thought Process: normal Thought Content: normal Judgment: judgment good Objective Labs Result Diagrams: 01/15/22 07:05 Labs: Laboratory Results - last 24 hr 01/13/22 01/14/22 06:45 06:15 SARS-CoV-2 (PCR) Negative Blood Type O Positive Antibody Screen Negative Assessment & Plan Plan day: 1 plan OB: routine postop care Comments: Anticipate discharge later today or early 01/16/2022. Time Spent With Patient Time: Total time spent is greater than 50% in coordination of care (as documented) at patient's floor/unit and/or counseling patient: Time with patient: 15-24 minutes
[2022-01-15 07:33] LABS: Add Manual Diff / Slide Review NO; Basophils Absolute Auto 100 /uL (0-100); Basophils Percent Auto 0.4 % (0-2); Eosinophils Absolute Auto 100 /uL (0-450); Eosinophils Percent Auto 0.6 % (2-4); Hematocrit 34.7 % (36-46); Hemoglobin 11.3 g/dL (12.0-16.0); Lymphocytes Absolute Auto 1700 /uL (1100-4500); Lymphocytes Percent Auto 12.2 % (25-40); Mean Corpuscular HGB Conc 32.4 % (30-36); Mean Corpuscular Hemoglobin 26.5 PG (26-34); Mean Corpuscular Volume 81.7 fL (80-100); Monocytes Absolute Auto 900 /uL (0-900); Monocytes Percent Auto 6.8 % (3-14); Neutrophils Absolute Auto 11000 /uL (1500-7000); Platelet Count 176 X10^3/uL (150-400); Red Blood Cell Count 4.25 X10^6/uL (4.0-5.2); Red Cell Distribution Width 15.3 % (11.6-14.8); White Blood Cell Count 13.8 X10^3/uL (4.5-11.0)
[2022-01-15 09:44] VITALS: TEMP 36.7
[2022-01-15 13:00] VITALS: TEMP 36.7
[2022-01-15] MEDS: IBUPROFEN 600 MG TABLET PO (13:00)
--- NOTE | 2022-01-15 13:27 | P.DS_ITS ---
Discharge Providers Provider Date of admission: 01/14/22 05:48 Discharge Date: 01/15/22 Primary care physician: Pancho MOYA Provider Consults: 01/14/22 09:45 Consult to Elevator Installer Routine Comment: Discharge provider: Derek Will MD Summary Hospital Course Date Patient Seen: 01/15/22 Time Patient Seen: 13:27 Diagnoses: Intrauterine gestation, 40+ 0 weeks gestational age, delivered by repeat section Myometrial window (noted at the time of repeat section) Hospital Course: Marj was admitted for repeat section on the morning of 01/14/2022. She underwent an uneventful repeat section on 01/14/2022 in the details of that procedure well summarized on my operative note of that date. At the t gladys of surgery she was noted to have a 5 cm x 3 cm myometrial window of the lower uterine segment and will therefore likely need earlier repeat section scheduling with any subsequent pregnancies. Following surgery the patient has done extremely well with prompt return of bowel and bladder function, her pain is well controlled with oral pain medications, she is ambulating independently, and tolerating regular diet. She will be discharged at this time to home in an afebrile normotensive condition following counseling regarding limitations of activity, precautionary symptoms, medications, and plans for follow-up. Medications at discharge will include oxycodone 5 mg p.o. Q 4-6 hours as needed pain #20, ibuprofen 600 mg p.o. q.6 hours as needed pain dispensed 60 with 2 refills, Colace 200 mg p.o. b.i.d. as needed constipation. In addition the patient will resume daily vitamins and encouraged to increase the amount of iron rich foods she takes in her diet. Follow-up will be scheduled for incision check and dressing removal in 1 week. Peripartum Data Delivery Method: Section Laceration Description: None Episiotomy description: None complications: none [place] 1: Gender: Female Disposition of : home Status at Discharge Cognitive/behavioral status at discharge: oriented Functional status at discharge: independent ambulation Overall status at discharge: patient is progressing back to baseline Time Spent with Patient Time attestation: Total time spent providing and/or coordinating discharge services: Time spent: Less than 30 minutes Objective Labs Result Diagrams: 01/15/22 07:05 Labs: Laboratory Results - last 24 hr 01/15/22 07:05 WBC 13.8 H RBC 4.25 Hgb 11.3 L Hct 34.7 L MCV 81.7 MCH 26.5 MCHC 32.4 RDW 15.3 H Plt Count 176 Neut % (Auto) 80.0 H Lymph % (Auto) 12.2 L [place] % (Auto) 6.8 Eos % (Auto) 0.6 L Baso % (Auto) 0.4 Neut # (Auto) 82697 H Lymph # (Auto) 1700 [place] # (Auto) 900 Eos # (Auto) 100 Baso # (Auto) 100 Exam Vital Signs (past 8 hours): - 01/15/22 09:44 01/15/22 13:00 Temperature 98.0 F 98.1 F Oxygen Delivery Method Room Air Const General: cooperative and comfortable Nutritional Appearance: average body habitus Orientation: alert and oriented x3 HENMT Head: normal to inspection, atraumatic and abrasion Ears: hearing grossly normal bilaterally Face and sinus: face symmetric Eyes General: appearance normal, both eyes and all related structures Conjunctivae: conjunctivae normal Sclera: sclerae normal EOM: EOM intact bilaterally Neck Neck: normal visual inspection Resp Effort & Inspection: normal respiratory effort and able to speak in complete se ntences Auscultation: clear to auscultation bilaterally Cardio Rate: regular rate Rhythm: regular rhythm Heart Sounds: S1 normal, S2 normal and no murmurs GI Inspection: normal to inspection and incision (Compression dressing removed, AquaCel applied, incision intact) Palpation: soft, no hepatosplenomegaly, mass (Mildly tender, firm fundus, U -6) and tender (Mild, diffuse postsurgical tenderness) External Female Exam: other (No significant bleeding noted) Extrem General: no calf tenderness Psych Appearance: grossly normal Mental Status: mental status grossly normal Speech and Movement: speech and movement normal Mood: congruent mood Affect: normal affect Attitude: cooperative Thought Process: normal Thought Content: normal Judgment: judgment good Discharge Plan Discharge Plan Patient Disposition: Home Provider Discharge Comment: Please review the discharge instructions you re ceived when you were discharged from the hospital. Your postop visit will be scheduled for 1 week following her surgery and I or 1 of my associates will see you at that time. If in the meanwhile however you have any issues, concerns, or questions, please contact the office via phone at [phone]. Discharge orders & Medications Prescriptions: New docusate sodium 100 mg Capsule 200 mg PO BID PRN (Reason: constipation) Qty: 60 2RF ibuprofen 600 mg Tablet 600 mg PO Q6H PRN (Reason: Fever/Mild Pain (1-3)) Qty: 60 2RF oxycodone 5 mg Tablet 5 mg PO Q4HR PRN (Reason: Pain, Moderate (4-6)) Qty: 20 0RF Continued prenat.vits,jacinto,[id number] Tablet 1 tab PO DAILY Follow up/Referrals: Diana Puckett MD [Physician] - (Dr. Puckett: January 22 @ 9:45am for incision check Dr. Will: February 26 @ 10:30am for appt) Derek Will MD [Physician] - Discharge Health Status Multidrug resistant organism: No MDRO Diet/Activity/Treatments Diet: Diet as Tolerated Activity: As tolerated Skin/Wound/Dressing Care Dressing: Dressing will be removed at your 1 week postop visit Visit Report/Discharge Packet Instructions: DI for , DI for and Nipple Soreness, DI for Prescription Opioid Use Stand Alone Forms: Discharge: Care Discharge Data Primary Care Provider: Pancho Castillo
[2022-01-15 14:09] VITALS: TEMP 36.6
[2022-01-15] MEDS: OXYCODONE IR 5 MG TABLET PO (14:09)
== END 2022-01-15 15:55 | disposition home or self-care (01) | DRG 788 ==
PROVIDERS: Admitting Provider Obstetrics & Gynecology; Referring Provider Obstetrics & Gynecology; Visit Provider Obstetrics & Gynecology
PROC: 10D00Z1 Extraction of Products of Conception, Low, Open Approach (ICD-10-PCS; CPT 59514; principal; 2022-01-14 07:45)
DX: O34.211 Maternal care for low transverse scar from previous cesarean delivery (principal); Z3A.40 40 weeks gestation of pregnancy; Z37.0 Single live birth; O99.02 Anemia complicating childbirth; D50.9 Iron deficiency anemia, unspecified; O99.892 Other specified diseases and conditions complicating childbirth; Z20.822 Contact with and (suspected) exposure to COVID-19
CPT/HCPCS: 36415; 59050; 59510; 59514; 85025; 86850; 86900; 86901; 87635; C9803; J0131; J0690; J1200; J1885; J2274; J2300; J2590